=== PATIENT | male | born 1970 | race Caucasian/White ===

== ENCOUNTER 2022-08-31 06:38 | Day surgery (SDC) | payer MEDICAID ==
[~2022-08-31] VITALS: Ht 182.9 cm; Wt 177.2 kg
[~2022-08-31 06:38] MED LIST: ALBU8HFA IH; ALLO300T2 PO; ASPI-1444 PO; FERR325T23 PO; FLUT16SP NASAL; FURO40TA5 PO; LATA2.5D14 OU; LOSA100T58 PO; PIOG45TA64 PO; SODIUM CHLORIDE 0.9% 1,000 ML IV ONE; SODIUM CHLORIDE 0.9% 1,000 ML ONE; TEST200V21 IM; UMEC62.5 IH
[2022-08-31 06:56] LABS: COVID AG,FIA SOURCE NASAL SWAB
[2022-08-31 08:01] LABS: GLUCOMETER DEV NAME(LOC) SDS.; GLUCOSE,POINT OF CARE 129 MG/DL (70-110)
== END 2022-08-31 10:30 | disposition home or self-care (01) ==
LOC: SURGERY 06:38
PROVIDERS: ATTEND Internal Medicine Gastroenterology
DX: R13.10 Dysphagia, unspecified (principal); Z53.8 Procedure and treatment not carried out for other reasons; I10 Essential (primary) hypertension; Z98.890 Other specified postprocedural states; Z79.899 Other long term (current) drug therapy; Z20.822 Contact with and (suspected) exposure to COVID-19
CPT/HCPCS: 87426; 82962; C9803; J7030

== ENCOUNTER 2022-09-21 10:38 | Day surgery (SDC) | payer MEDICAID ==
[~2022-09-21] VITALS: Ht 180.3 cm; Wt 180.9 kg
[2022-09-21] MEDS ORDERED: PROPOFOL 1% 20 ML VIAL IVP ONE (10:39)
[2022-09-21] MEDS ORDERED: LIDOCAINE/PF 2% 5 ML VIAL IM ONE (10:39)
[2022-09-21 11:08] LABS: COVID AG,FIA SOURCE NASAL SWAB
== END 2022-09-21 15:30 | disposition home or self-care (01) ==
LOC: SURGERY 10:38
PROVIDERS: ATTEND Internal Medicine Gastroenterology
DX: K20.90 Esophagitis, unspecified without bleeding (principal); K29.70 Gastritis, unspecified, without bleeding; K31.89 Other diseases of stomach and duodenum; I10 Essential (primary) hypertension; G47.33 Obstructive sleep apnea (adult) (pediatric); E11.9 Type 2 diabetes mellitus without complications; J44.9 Chronic obstructive pulmonary disease, unspecified; G47.30 Sleep apnea, unspecified; Z79.899 Other long term (current) drug therapy; D64.9 Anemia, unspecified; Z98.890 Other specified postprocedural states; E66.01 Morbid (severe) obesity due to excess calories; Z20.822 Contact with and (suspected) exposure to COVID-19; Z79.82 Long term (current) use of aspirin; Z68.43 Body mass index [BMI] 50.0-59.9, adult
CPT/HCPCS: 43239; 87426; C1769; J2704; J3490; J7030; C9803; 88305

== ENCOUNTER 2023-01-25 07:25 | Day surgery (SDC) | payer MEDICAID ==
[~2023-01-25] VITALS: Ht 180.3 cm; Wt 185.0 kg
[~2023-01-25 07:25] MED LIST changes: +METF-446 PO; +OMEP20CA12 PO
[2023-01-25] MEDS ORDERED: PROPOFOL 1% 20 ML VIAL IVP ONE (07:26)
[2023-01-25] MEDS ORDERED: LIDOCAINE/PF 2% 5 ML SYRINGE IVP ONE (07:26)
[2023-01-25] MEDS ORDERED: FentaNYL CITRATE PF 100 MCG/2 ML VIAL ONE (07:43)
[2023-01-25] MEDS ORDERED: MIDAZOLAM HCL 2 MG/2 ML VIAL ONE (07:43)
[2023-01-25 07:47] LABS: COVID AG,FIA SOURCE NASAL SWAB
[2023-01-25] MEDS ORDERED: ALBUTEROL SULFATE 2.5 MG/0.5 ML NEB SOLUTION NEB ONE ×2 (09:03→09:15)
== END 2023-01-25 11:30 | disposition home or self-care (01) ==
LOC: SURGERY 07:25
PROVIDERS: ATTEND Student in an Organized Health Care Education/Training Program
DX: K29.70 Gastritis, unspecified, without bleeding (principal); K20.90 Esophagitis, unspecified without bleeding; F17.210 Nicotine dependence, cigarettes, uncomplicated; I10 Essential (primary) hypertension; J44.9 Chronic obstructive pulmonary disease, unspecified; Z20.822 Contact with and (suspected) exposure to COVID-19; Z98.890 Other specified postprocedural states; Z79.899 Other long term (current) drug therapy
CPT/HCPCS: 43239; 87426; C1769; J2704; J3490; J7030; C9803; J2250; J3010